=== PATIENT | male | born 2000 | race Caucasian/White ===

== ENCOUNTER 2019-08-13 14:20 | Emergency (ER) | payer MEDICAID ==
[~2019-08-13] VITALS: Ht 177.8 cm; Wt 116.0 kg
[2019-08-13 17:17] VITALS: BP 128/66
== END 2019-08-13 19:56 | disposition left against medical advice (07) ==
LOC: ER 14:20
DX: R11.10 Vomiting, unspecified (principal); Z53.21 Procedure and treatment not carried out due to patient leaving prior to being seen by health care provider